=== PATIENT | female | born 1950 | race African-American/Black ===

== ENCOUNTER 2018-09-25 11:25 | Emergency (ER) | payer MEDICARE, BC ==
[2018-09-25] MEDS ORDERED: Ketorolac Tromethamine 30 MG/ML VIAL ONE (14:00)
--- NOTE | 2018-09-25 15:19 | CT ---
CT OF THE PELVIS WITHOUT CONTRAST: Date: 09/25/18 HISTORY: Fall straight down while working out on fitness equipment, with back pain and pelvic pain. TECHNIQUE: Multiple contiguous axial images were obtained in a CT of the pelvis without contrast. Sagittal and c oronal reformats were performed. FINDINGS: No fracture or dislocation seen in any of the visualized bones. Degenerative changes are seen in the lumbar spine. The visualized intrapelvic structures are unremarkable. The muscles and soft tissues rodriguez rrounding the bones of the pelvis are unremarkable. IMPRESSION: No evidence of acute osseous abnormality. POS: KAREN
[2018-09-25] MEDS ORDERED: Morphine 4 MG/ML VIAL ONE (15:34)
--- NOTE | 2018-09-25 15:51 | CT ---
NONCONTRAST CT LUMBAR SPINE: Date: 09/25/18 HISTORY: Injury to lumbar spine. Patient has severe back pain after falling while working with fitness equipme nt. TECHNIQUE: Contiguous axial CT images are obtained through the lumbar spine from the T11-12 level to the upper s acrum. Sagittal and coronal reformatted images are provided. FINDINGS: There is a burst fracture involving the superior end plate of the L2 vertebral body with cortical adriana ency seen, and findings are most suggestive of a more acute to subacute burst fracture involving the L2 vertebral body. There is slight retropulsion of the posterior superior end plate, but does this do es not result in significant effacement of the ventral aspect of the thecal sac. The remaining verteb ral body heights are within normal limits and no additional fracture is seen. L1-2 Level: There is minimal disc osteophyte complex, which, in combination with the retropulsion of fracture fragments, results in slight effacement of the ventral aspect of the thecal sac. Neural for armani are patent. L2-3 Level: There is no significant disc bulge or disc herniation. Central spinal canal and neural f oramina are patent. L2-3 Level: There is a mild disc osteophyte complex and mild facet hypertrophic changes resulting in mild narrowing of the central spinal canal. The neural foramina are patent. L4-5 Level: There is a mild broad based disc osteophyte complex with facet hypertrophic changes and mild ligamentous thickening at this level. Resultant mild narrowing of the central spinal canal is pr esent. There is no significant narrowing of the neural foramina. L5-S1 Level: There is Grade I anterolisthesis of L5 on S1 measuring approximately 6.0 mm. Facet hype rtrophic changes are present at this level with vacuum phenomenon seen within the facet joints. No pa rs defects are visualized. There is uncovering of the intervertebral disc due to the anterolisthesis. Prominent facet hypertrophic changes, as well as a mild disc bulge and ligamentous thickening at thi s level result in mild to moderate narrowing of the central spinal canal. Mild bilateral neural glenn inal narrowing is present. There are a punctate nonobstructing bilateral renal calculi seen. The perivertebral soft tissues are within normal limits. There is nodularity of the left adrenal glan d measuring approximately 1.4 cm, which does demonstrate an attenuation coefficient on this nonenhanc ed CT exam suggestive of an adrenal adenoma involving the medial limb of the left adrenal gland. IMPRESSION: 1. Burst fracture of the L2 vertebral body with approximately 10% loss of height predominantly centr ally involving this vertebral body. There is only slight mass effect on the ventral aspect of the the marianne sac due to retropulsion of fracture fragments. This fracture is thought to be more acute given librado cencies within the fracture. 2. Degenerative changes of the lower lumbar spine with Grade I anterolisthesis of L5 on S1 related t o prominent facet hypertrophic changes. 3. Nonobstructing bilateral renal calculi. 4. Left adrenal adenoma. Above findings discussed with Karly, nurse in ER, on 09/25/18 1618 hours. CODE CR. POS: KAREN
== END 2018-09-25 17:51 | disposition home or self-care (01) ==
LOC: ERS 11:25
DX: S32.021A Stable burst fracture of second lumbar vertebra, initial encounter for closed fracture (principal); E11.9 Type 2 diabetes mellitus without complications; E03.9 Hypothyroidism, unspecified; E78.5 Hyperlipidemia, unspecified; I10 Essential (primary) hypertension; Z79.899 Other long term (current) drug therapy; Z79.84 Long term (current) use of oral hypoglycemic drugs; Z79.82 Long term (current) use of aspirin; W18.30XA Fall on same level, unspecified, initial encounter
CPT/HCPCS: 72131; 72192; 96372; 96374; J1885; J2270